=== PATIENT | female | born 1995 | race Caucasian/White ===

== ENCOUNTER 2020-05-15 13:23 | Observation (INO) | payer BC ==
[2020-05-15 14:00] LABS: Absolute Neutrophil Ct (ANC) 7.74 (1.4-6.9); BASOPHIL % 0.2 % (0.0-0.4); Basophil (Absolute #) 0.02 (0-0.4); Eosinophil % 1.3 % (0.00-5.0); Eosinophil (Absolute #) 0.13 (0-0.5); Hematocrit 36.6 % (35-47); Hemoglobin 11.9 gm/dl (12.0-16.0); Lymphocyte (Absolute #) 1.33 (1.0-4.6); Lymphocytes % 13.1 % (24.0-44.0); Mean Cell Volume 89.7 fl (78-100); Mean Corpuscular Hemoglobin 29.2 pg (26-32); Mean Corpuscular Hgb Concent. 32.5 g/dl (32-36); Mean Platelet Volume 9.5 fl (7.5-11.0); Monocyte (Absolute #) 0.94 (0.0-1.3); Monocytes % 9.3 % (0.0-12.0); Neutrophil % 76.1 % (36.0-66.0); Platelet Count 296 K/mm3 (150-450); Red Blood Count 4.08 M/mm3 (4.1-5.4); Red Cell Distribution Width 13.6 % (11.5-14.0); White Blood Count 10.2 K/mm3 (4.0-10.5)
[2020-05-15 14:06] LABS: ALBUMIN 3.7 g/dL (3.5-5.0); ALKALINE PHOSPHATASE 96 U/L (38-126); ANION GAP 10.3 MEQ/L (5-15); BLOOD UREA NITROGEN 8 mg/dL (7-17); CHLORIDE 107 mmol/L (98-107); Calcium 9.1 mg/dL (8.4-10.2); Carbon Dioxide 23 mmol/L (22-30); Creatinine 1 0.47 mg/dL (0.52-1.04); Glucose 107 mg/dL (74-106); Potassium 3.9 mmol/L (3.5-5.1); SGOT/AST 21 U/L (14-36); SGPT/ALT 17 U/L (0-35); SODIUM 137 mmol/L (137-145); Total Protein 6.9 g/dL (6.3-8.2)
--- NOTE | 2020-05-15 16:06 | XRAY ---
Indication: Hypertension. Evaluate cervical length. Limited transvaginal pelvic sonogram demonstrates closed cervix measuring 3.7 cm in length.
--- NOTE | 2020-05-15 16:06 | XRAY ---
Indication: Hypertension. Ultrasound biophysical profile study performed. Comparison: None There is a single viable intrauterine in cephalic presentation with heart rate 132 bpm. 4 quadrant LEOPOLDO is 10.8 cm. 2 points given for breathing, movements, tone, and qualitative amniotic fluid volume. Impression: Total biophysical profile score is 8 out of 8.
== END 2020-05-15 16:04 | disposition home or self-care (01) ==
LOC: OB 13:23
PROVIDERS: ADMIT Family Medicine; ATTEND Family Medicine
DX: Z34.03 Encounter for supervision of normal first pregnancy, third trimester (principal); R03.0 Elevated blood-pressure reading, without diagnosis of hypertension
CPT/HCPCS: 36415; 59025; 76817; 76819; 80053; 82570; 84156; 85025; G0378

== ENCOUNTER 2020-05-21 15:07 | Observation (INO) | payer BC ==
[2020-05-21 16:08] VITALS: BP 118/66; PULSE 78
--- NOTE | 2020-05-21 21:47 | XRAY ---
Indication: Hypertension. Biophysical profile exam. Ultrasound biophysical profile study was performed. Comparison: May 15, 2020. Again there is a single viable intrauterine in cephalic presentation with heart rate 137 bpm. 4 quadrant LEOPOLDO is 13.8 cm, previously 10.8 cm. Cervical length is 3.9 cm, previously 3.7 cm. Impression: Total biophysical profile score is again 8 out of 8. Cervical length 3.9 cm.
== END 2020-05-21 17:00 | disposition home or self-care (01) ==
LOC: OB 15:07 → EDSTATUS 05-22 10:25
PROVIDERS: ADMIT Family Medicine; ATTEND Family Medicine
DX: O14.93 Unspecified pre-eclampsia, third trimester (principal); Z3A.35 35 weeks gestation of pregnancy
CPT/HCPCS: 59025; 76819; G0378

== ENCOUNTER 2020-05-23 15:12 | Observation (INO) | payer BC ==
[2020-05-23 16:42] VITALS: BP 123/78; PULSE 76
--- NOTE | 2020-05-23 22:11 | XRAY ---
Exam: biophysical profile with nonstress from 05/23/2020. Comparison: Ultrasound biophysical profile from 05/21/2020. Indication: Preeclampsia. Findings: Assessment of breathing movements, gross body movements, tone, and qualitative amniotic fluid volume reveals a total score of 8 points out of a maximum of 8 points representing no change from 05/21/2020. heart rate measured 139 bpm. Amniotic fluid index measured 12.2 cm, previously 13.78 cm. Impression: 1. biophysical profile measures 8 points out of a maximum of 8 points representing no change from 05/21/2020. Exam: OB ultrasound follow-up per fetus from 05/23/2017. Comparison: OB ultrasound examination from 05/08/2020. Indication: Preeclampsia. Findings: A single live intrauterine fetus is seen in the cephalic lie. A normal amount of amniotic fluid is seen with an amniotic fluid index of 12.2 cm. Both body movement and respiration were seen by the technologist. The heart rate measured 139 bpm. The placenta is posterior. biometry: Biparietal diameter measures 9.13 cm consistent with a gestational age of 37 weeks, 0 days. Head circumference measures 34.06 cm consistent with a gestational age of 39 weeks, 1 day. Abdominal circumference measures 32.43 cm consistent with a gestational age of 36 weeks, 2 days. Femur length measures 6.41 cm consistent with a gestational age of 33 weeks, 1 day. Average composite gestational age based on all of the measurements is 36 weeks, 3 days representing satisfactory intrauterine growth as compared to 05/08/2020. Estimated due date by size criteria on today's exam is 06/17/2020. Established due date by the first OB ultrasound exam of 11/06/2019 is 06/26/2020. Estimated weight is 2794 g plus or -419.11 g (6 lbs. 3 oz.+ or -15 ounces) which places the fetus in the 69.2 percentile. A detailed anatomy scan was previously performed. Impression: 1. 36 week, 3 day single live intrauterine fetus in the cephalic lie. There has been satisfactory intrauterine growth since the previous ultrasound exam from 05/08/2020. 2. The placenta is posterior. 3. A normal amount of amniotic fluid is seen with an amniotic fluid index of 12.2 cm.
== END 2020-05-23 16:44 | disposition home or self-care (01) ==
LOC: OB 15:12
PROVIDERS: ADMIT Family Medicine; ATTEND Family Medicine
DX: O14.93 Unspecified pre-eclampsia, third trimester (principal); Z3A.35 35 weeks gestation of pregnancy
CPT/HCPCS: 59025; 76816; 76818; G0378

== ENCOUNTER 2020-05-26 19:01 | Observation (INO) | payer BC ==
[2020-05-26 19:46] LABS: Amphetamine,Urine NEGATIVE (NEGATIVE); Barbiturate,Urine NEGATIVE (NEGATIVE); Benzodiazepine,Urine NEGATIVE (NEGATIVE); Cocaine,Urine NEGATIVE (NEGATIVE); Methadone,Urine NEGATIVE (NEGATIVE); Opiate,Urine NEGATIVE (NEGATIVE); PCP,Urine NEGATIVE (NEGATIVE); THC,Urine NEGATIVE (NEGATIVE)
[2020-05-26 19:48] LABS: Appearance CLEAR (CLEAR); Bacteria RARE /HPF (NEGATIVE); Bilirubin NEGATIVE (NEGATIVE); Blood NEGATIVE Ery/ul (0-5); Epithelial Cells RARE /HPF (FEW); Glucose NEGATIVE (NEGATIVE); Ketones NEGATIVE (NEGATIVE); Leukocyte Esterase NEGATIVE (NEGATIVE); Mucus SLIGHT /HPF (NEGATIVE); Nitrite NEGATIVE (NEGATIVE); Protein,Urine Dip NEGATIVE (Negative); RBC 0-2 /HPF (0-2); Specific Gravity 1.017 (1.005-1.025); Urobilinogen NEGATIVE mg/dL (0-1)
[2020-05-26 20:50] LABS: Absolute Neutrophil Ct (ANC) 8.37 (1.4-6.9); BASOPHIL % 0.2 % (0.0-0.4); Basophil (Absolute #) 0.02 (0-0.4); Eosinophil % 1.1 % (0.00-5.0); Eosinophil (Absolute #) 0.14 (0-0.5); Hematocrit 37.8 % (35-47); Hemoglobin 12.6 gm/dl (12.0-16.0); Lymphocyte (Absolute #) 2.65 (1.0-4.6); Lymphocytes % 21.6 % (24.0-44.0); Mean Cell Volume 88.7 fl (78-100); Mean Corpuscular Hemoglobin 29.6 pg (26-32); Mean Corpuscular Hgb Concent. 33.3 g/dl (32-36); Mean Platelet Volume 9.6 fl (7.5-11.0); Neutrophil % 68.1 % (36.0-66.0); Platelet Count 282 K/mm3 (150-450); Red Blood Count 4.26 M/mm3 (4.1-5.4); Red Cell Distribution Width 13.8 % (11.5-14.0); White Blood Count 12.3 K/mm3 (4.0-10.5)
[2020-05-26 21:01] LABS: ALBUMIN 3.5 g/dL (3.5-5.0); ALKALINE PHOSPHATASE 103 U/L (38-126); ANION GAP 12.3 MEQ/L (5-15); BLOOD UREA NITROGEN 9 mg/dL (7-17); CHLORIDE 105 mmol/L (98-107); Calcium 9.2 mg/dL (8.4-10.2); Carbon Dioxide 23 mmol/L (22-30); Creatinine 1 0.52 mg/dL (0.52-1.04); Glucose 107 mg/dL (74-106); Potassium 3.6 mmol/L (3.5-5.1); SGOT/AST 21 U/L (14-36); SGPT/ALT 16 U/L (0-35); SODIUM 137 mmol/L (137-145); Total Protein 6.7 g/dL (6.3-8.2); Uric Acid 4.1 mg/dL (2.6-6.0)
[2020-05-26 21:33] VITALS: O2SAT 99
[2020-05-26 21:35] VITALS: BP 129/60; PULSE 84
== END 2020-05-26 21:30 | disposition home or self-care (01) ==
LOC: OB 19:01
PROVIDERS: ADMIT Obstetrics & Gynecology; ATTEND Obstetrics & Gynecology
DX: Z34.03 Encounter for supervision of normal first pregnancy, third trimester (principal)
CPT/HCPCS: 36415; 80053; 80307; 81001; 84550; 85025; G0378

== ENCOUNTER 2020-05-28 10:03 | Observation (INO) | payer BC ==
[~2020-05-28 10:03] MED LIST: AMMONIA AROMATIC IH ONE
--- NOTE | 2020-05-28 15:32 | XRAY ---
Indication: Preeclampsia. Ultrasound biophysical profile exam was performed. Comparison: May 23, 2020. Again there is a single viable intrauterine in cephalic presentation. heart rate is 131 BPM. Four-quadrant LEOPOLDO is 15.9 cm. 2 points given for breathing, movements, tone, and qualitative amniotic fluid volume. Impression: Biophysical profile score is again 8 out of 8.
[2020-05-28 16:02] VITALS: BP 117/67; PULSE 88
== END 2020-05-28 15:30 | disposition home or self-care (01) ==
LOC: OB 14:36
PROVIDERS: ADMIT Family Medicine; ATTEND Family Medicine
DX: O14.93 Unspecified pre-eclampsia, third trimester (principal); Z3A.35 35 weeks gestation of pregnancy
CPT/HCPCS: 59025; 76819; G0378

== ENCOUNTER 2020-05-31 14:59 | Observation (INO) | payer BC ==
[2020-05-31 16:08] VITALS: BP 141/85; PULSE 80
--- NOTE | 2020-05-31 16:59 | XRAY ---
Indication: Preeclampsia. Ultrasound biophysical profile exam performed. Comparison: May 15, , , and 2019. There is again a single viable intrauterine with heart rate 140 BPM. Four-quadrant LEOPOLDO is 15.4 cm. 2 points given for breathing, movements, tone, and qualitative amniotic fluid volume. Impression: Continued stable biophysical profile score 8 out of 8.
--- NOTE | 2020-05-31 16:59 | XRAY ---
Indication: Evaluate growth and cervical length. Two-dimensional OB ultrasound performed. Comparison: May 23, 2020. Again there is a single viable intrauterine in cephalic presentation. heart rate 140 BPM. Posterior placenta without abruption/previa. Cervical length is 4.3 cm. BPD measures 9.29 cm corresponding to 37 weeks 5 days. HC measures 34.57 cm corresponding to 40 weeks 0 days. AC measures 31.85 cm corresponding to 35 weeks 5 days. FL measures 6.95 cm corresponding to 35 weeks 5 days. LEOPOLDO is 15.4 cm. Impression: Again single viable intrauterine with mean gestational age 37 weeks 2 days. Normal progression of . No new/acute findings.
== END 2020-05-31 16:33 | disposition home or self-care (01) ==
LOC: OB 14:59
PROVIDERS: ADMIT Family Medicine; ATTEND Family Medicine
DX: O14.93 Unspecified pre-eclampsia, third trimester (principal); Z3A.36 36 weeks gestation of pregnancy
CPT/HCPCS: 59025; 76816; 76819; G0378

== ENCOUNTER 2020-06-06 12:22 | Observation (INO) | payer BC ==
[2020-06-06] MEDS ORDERED: Zofran 4 MG/2 ML VIAL IV PRN (20:11)
[2020-06-06] MEDS ORDERED: Nubain 10 MG/ML IV PRN (20:11)
[2020-06-06] MEDS ORDERED: TYLENOL EXTRA STRENGTH 500 MG PO PRN (20:11)
[2020-06-06] MEDS ORDERED: XYLOCAINE 1% HCL 20 ML MDV IJ PRN (20:11)
[2020-06-06] MEDS ORDERED: STADOL 2 MG IV PRN (20:11)
[2020-06-06] MEDS ORDERED: PITOCIN 30 UNITS/ LR 500 ML 30 UNITS/500 ML IV.SOLN. IV SCH (20:30)
[2020-06-06 20:50] LABS: BASOPHIL % 0.2 % (0.0-0.4); Basophil (Absolute #) 0.02 (0-0.4); Eosinophil % 1.2 % (0.00-5.0); Eosinophil (Absolute #) 0.13 (0-0.5); Hematocrit 36.1 % (35-47); Lymphocyte (Absolute #) 2.13 (1.0-4.6); Mean Cell Volume 88.9 fl (78-100); Mean Corpuscular Hemoglobin 29.6 pg (26-32); Mean Corpuscular Hgb Concent. 33.2 g/dl (32-36); Mean Platelet Volume 9.9 fl (7.5-11.0); Monocyte (Absolute #) 1.11 (0.0-1.3); Monocytes % 9.9 % (0.0-12.0); Neutrophil % 69.7 % (36.0-66.0); Platelet Count 303 K/mm3 (150-450); Red Blood Count 4.06 M/mm3 (4.1-5.4); Red Cell Distribution Width 13.7 % (11.5-14.0); White Blood Count 11.2 K/mm3 (4.0-10.5)
[2020-06-06 21:51] LABS: Amourphous Crystal FEW /HPF (NEGATIVE); Appearance CLOUDY (CLEAR); Bacteria FEW /HPF (NEGATIVE); Bilirubin NEGATIVE (NEGATIVE); Blood NEGATIVE Ery/ul (0-5); Glucose NEGATIVE (NEGATIVE); Ketones NEGATIVE (NEGATIVE); Leukocyte Esterase NEGATIVE (NEGATIVE); Mucus SLIGHT /HPF (NEGATIVE); Nitrite NEGATIVE (NEGATIVE); Protein,Urine Dip NEGATIVE (Negative); Specific Gravity 1.011 (1.005-1.025); Urobilinogen NEGATIVE mg/dL (0-1); WBC 0-2 /HPF (0-5)
[2020-06-06 22:01] LABS: Amphetamine,Urine NEGATIVE (NEGATIVE); Barbiturate,Urine NEGATIVE (NEGATIVE); Benzodiazepine,Urine NEGATIVE (NEGATIVE); Cocaine,Urine NEGATIVE (NEGATIVE); Methadone,Urine NEGATIVE (NEGATIVE); Opiate,Urine NEGATIVE (NEGATIVE); PCP,Urine NEGATIVE (NEGATIVE); THC,Urine NEGATIVE (NEGATIVE)
[2020-06-07] MEDS ORDERED: PITOCIN 30 UNITS/ LR 500 ML 30 UNITS/500 ML IV.SOLN. IV SCH (06:00)
[2020-06-07] MEDS ORDERED: Lactated Ringers 1,000 ML IV SCH (06:00)
[2020-06-07] MEDS ORDERED: PITOCIN 30 UNITS/ LR 500 ML 500 ML IV SCH (07:00)
[2020-06-07] MEDS ORDERED: SYNTHROID 75 MCG PO SCH (11:00)
[2020-06-07 13:29] VITALS: BP 130/70; PULSE 77; O2SAT 98
== END 2020-06-07 13:15 | disposition home or self-care (01) ==
LOC: OB 17:38
PROVIDERS: ADMIT Family Medicine; ATTEND Family Medicine
DX: Z34.03 Encounter for supervision of normal first pregnancy, third trimester (principal)
CPT/HCPCS: 80307; 81001; 85025; G0378; 36415; 87340; J2590; A9270-GY

== ENCOUNTER 2020-06-11 12:52 | Observation (INO) | payer BC ==
[2020-06-11 14:55] VITALS: BP 131/67; PULSE 86; O2SAT 97
--- NOTE | 2020-06-12 09:34 | XRAY ---
Exam: OB biophysical profile with nonstress from 06/11/2020. Comparison: OB biophysical profile without nonstress from 05/31/2020. Indication: Large for dates. Findings: Biophysical profile was 8 points out of a maximum of 8 points, scoring 2 points for each of the following parameters: breathing movements, gross body movements, tone, and qualitative amniotic fluid volume. A single live intrauterine fetus is seen in the cephalic lie. heart rate measured 133 bpm. Amniotic fluid index measured 15.29 cm, previously 15.4 cm. Impression: 1. OB biophysical profile scored 8 points out of a maximum of 8 points representing no significant change from 05/31/2020.
--- NOTE | 2020-06-12 09:57 | XRAY ---
Exam: OB ultrasound follow-up per fetus from 06/11/2020. Comparison: OB ultrasound follow-up for fetus from 06/04/2020. Indication: Large for dates. Findings: A single live intrauterine fetus is seen in the cephalic lie. heart rate measured 133 bpm. The placenta is posterior and grade 3. Amniotic fluid index measured 15.29 cm. Maternal cervical canal length is an average of 3.40 cm which is normal. It appears closed. biometry: Biparietal diameter measures 9.7 cm consistent with a gestational age of 39 weeks, 5 days. Abdominal circumference measures 35.68 cm consistent with a gestational age of 39 weeks, 4 days. Femur length measures 7.18 cm consistent with a gestational age of 36 weeks, 5 days. Average composite gestational age based on the above measurements is 38 weeks, 5 days. Established due date is 06/26/2020. Estimated weight is 3749 g plus or -562.42 g (8 lbs. 4 oz.+ or -1 lb. 4 oz.) placing the fetus in the 90.8 percentile. A detailed anatomy exam was not performed at this time. Impression: 1. 38 week, 5 day single live intrauterine fetus in the cephalic lie, as discussed above. 2. The placenta is posterior and grade 3. 3. Amniotic fluid index measured 15.29 cm which is normal. 4. Average maternal cervical canal measured 3.4 cm in length. It appears closed.
== END 2020-06-11 14:40 | disposition home or self-care (01) ==
LOC: MED SURG 12:52
PROVIDERS: ADMIT Family Medicine; ATTEND Family Medicine
DX: O13.3 Gestational [pregnancy-induced] hypertension without significant proteinuria, third trimester (principal); Z3A.38 38 weeks gestation of pregnancy
CPT/HCPCS: 76816; 76818

== ENCOUNTER 2020-06-17 10:32 | Observation (INO) | payer BC ==
--- NOTE | 2020-06-17 12:10 | XRAY ---
Indication: Decreased movement. well-being. Ultrasound biophysical profile exam performed. Comparison: Numerous priors, most recent May 31, 2020. Again there is a single viable intrauterine patency with heart rate 131 BPM. Four-quadrant LEOPOLDO is 8.9 cm. 2 points given for breathing, tone, and qualitative amniotic fluid volume. 0 points given for movement. Impression: Total biophysical profile score is now 6 out of 8.
[2020-06-17 12:26] VITALS: BP 135/85; PULSE 69
== END 2020-06-17 12:20 | disposition home or self-care (01) ==
LOC: OB 10:32
PROVIDERS: ADMIT Family Medicine; ATTEND Family Medicine
DX: Z34.03 Encounter for supervision of normal first pregnancy, third trimester (principal)
CPT/HCPCS: 59025; 76819; G0378

== ENCOUNTER 2020-06-17 12:37 | Observation (INO) | payer BC ==
[2020-06-18] MEDS ORDERED: PITOCIN 30 UNITS/ LR 500 ML 500 ML IV SCH (06:00)
[2020-06-18] MEDS ORDERED: TYLENOL EXTRA STRENGTH 500 MG PO PRN (19:25)
[2020-06-18] MEDS ORDERED: Zofran 4 MG/2 ML VIAL IV PRN (19:25)
[2020-06-18] MEDS ORDERED: Lactated Ringers 1,000 ML IV SCH (19:30)
[2020-06-18] MEDS ORDERED: XYLOCAINE 1% HCL 20 ML MDV IJ PRN (20:00)
[2020-06-18] MEDS: CYTOTEC PO SCH ×2 (20:52→22:54)
[2020-06-18 20:53] LABS: BASOPHIL % 0.2 % (0.0-0.4); Basophil (Absolute #) 0.02 (0-0.4); Eosinophil % 1.1 % (0.00-5.0); Eosinophil (Absolute #) 0.12 (0-0.5); Hematocrit 37.3 % (35-47); Hemoglobin 12.4 gm/dl (12.0-16.0); Lymphocyte (Absolute #) 2.08 (1.0-4.6); Lymphocytes % 19.4 % (24.0-44.0); Mean Cell Volume 88.8 fl (78-100); Mean Corpuscular Hemoglobin 29.5 pg (26-32); Mean Corpuscular Hgb Concent. 33.2 g/dl (32-36); Mean Platelet Volume 10.2 fl (7.5-11.0); Monocyte (Absolute #) 0.82 (0.0-1.3); Monocytes % 7.6 % (0.0-12.0); Neutrophil % 71.7 % (36.0-66.0); Platelet Count 308 K/mm3 (150-450); Red Cell Distribution Width 13.6 % (11.5-14.0); White Blood Count 10.7 K/mm3 (4.0-10.5)
[2020-06-18 21:24] LABS: Amphetamine,Urine NEGATIVE (NEGATIVE); Barbiturate,Urine NEGATIVE (NEGATIVE); Benzodiazepine,Urine NEGATIVE (NEGATIVE); Cocaine,Urine NEGATIVE (NEGATIVE); Methadone,Urine NEGATIVE (NEGATIVE); Opiate,Urine NEGATIVE (NEGATIVE); PCP,Urine NEGATIVE (NEGATIVE); THC,Urine NEGATIVE (NEGATIVE)
[2020-06-18 22:14] VITALS: O2SAT 96
[2020-06-19] MEDS: CYTOTEC PO SCH ×4 (00:55→06:55)
[2020-06-19] MEDS ORDERED: PITOCIN 30 UNITS/ LR 500 ML 500 ML IV SCH (08:00)
[2020-06-19] MEDS ORDERED: XYLOCAINE 1% HCL 20 ML MDV IJ PRN (08:00)
[2020-06-19] MEDS ORDERED: MEDICATION INTERVENTION MC SCH (08:45)
[2020-06-19] MEDS: Lactated Ringers 1,000 ML IV SCH ×2 (09:00→18:12)
[2020-06-19] MEDS ORDERED: PITOCIN 30 UNITS/ LR 500 ML 30 UNITS/500 ML IV.SOLN. IV SCH (11:00)
[2020-06-19] MEDS ORDERED: BRETHINE 1 MG/ML SQ PRN (11:00)
[2020-06-19] MEDS: SYNTHROID 75 MCG PO SCH (20:00)
[2020-06-19] MEDS: THERAGRAN MULTIVITAMIN PO SCH (20:00)
[2020-06-19] MEDS ORDERED: DOXYLAMINE SUCCINATE PO SCH (22:00)
[2020-06-19] MEDS ORDERED: Ambien 10 MG PO PRN (22:00)
[2020-06-19] MEDS ORDERED: VIT B6 PO SCH (22:00)
[2020-06-19] MEDS ORDERED: NON-FORMULARY ITEM (Prenatal Vits W-Ca,Fe,Fa(<1mg) [Prenatal] 1 EACH) PO SCH (22:00)
[2020-06-20] MEDS: Lactated Ringers 1,000 ML IV SCH (01:17)
[2020-06-20] MEDS: CYTOTEC PO SCH ×6 (07:31→17:31)
[2020-06-20] MEDS: THERAGRAN MULTIVITAMIN PO SCH (09:49)
[2020-06-20] MEDS: SYNTHROID 75 MCG PO SCH (09:49)
[2020-06-20 17:01] VITALS: BP 128/75; PULSE 80
[2020-06-20] MEDS ORDERED: PITOCIN 30 UNITS/ LR 500 ML 500 ML IV SCH (20:00)
== END 2020-06-20 19:25 | disposition home or self-care (01) ==
LOC: OB 06-18 20:02
PROVIDERS: ADMIT Family Medicine; ATTEND Family Medicine
DX: Z34.03 Encounter for supervision of normal first pregnancy, third trimester (principal)
CPT/HCPCS: 36415; 80307; 85025; 87340; G0378; J2590; A9270-GY

== ENCOUNTER 2020-06-22 08:55 | Inpatient (IN) | payer BC ==
[2020-06-22] MEDS ORDERED: XYLOCAINE 1% HCL 20 ML MDV IJ PRN (20:17)
[2020-06-22] MEDS ORDERED: Zofran 4 MG/2 ML VIAL IV PRN (20:17)
[2020-06-22] MEDS ORDERED: CYTOTEC PO SCH (20:30)
[2020-06-22 21:03] LABS: Hematocrit 35.5 % (35-47); Hemoglobin 11.7 gm/dl (12.0-16.0); Mean Cell Volume 89.6 fl (78-100); Mean Corpuscular Hemoglobin 29.5 pg (26-32); Mean Platelet Volume 10.1 fl (7.5-11.0); Platelet Count 278 K/mm3 (150-450); Red Blood Count 3.96 M/mm3 (4.1-5.4); Red Cell Distribution Width 13.7 % (11.5-14.0); White Blood Count 11.9 K/mm3 (4.0-10.5)
[2020-06-22] MEDS: CYTOTEC PO SCH ×2 (21:03→23:00)
[2020-06-22 21:21] LABS: Amphetamine,Urine NEGATIVE (NEGATIVE); Barbiturate,Urine NEGATIVE (NEGATIVE); Benzodiazepine,Urine NEGATIVE (NEGATIVE); Cocaine,Urine NEGATIVE (NEGATIVE); Methadone,Urine NEGATIVE (NEGATIVE); Opiate,Urine NEGATIVE (NEGATIVE); PCP,Urine NEGATIVE (NEGATIVE); THC,Urine NEGATIVE (NEGATIVE)
[2020-06-22 22:43] LABS: Basophil 1 % (0.0-1.0); Lymphocytes 16 % (24-44); Monocyte 4 % (0.0-12.0); Neutrophils 79 % (36.0-66.0); Total Cells Counted 100
[2020-06-22 22:44] LABS: Platelet Estimate NORMAL (NORMAL)
[2020-06-22] MEDS ORDERED: Ephedrine Sulfate 50 MG/ML IV PRN (22:44)
[2020-06-23] MEDS: CYTOTEC PO SCH ×3 (01:00→05:30)
[2020-06-23] MEDS ORDERED: PITOCIN 30 UNITS/ LR 500 ML 30 UNITS/500 ML IV.SOLN. IV SCH (08:00)
[2020-06-23] MEDS ORDERED: Lactated Ringers 1,000 ML IV ONE (08:00)
[2020-06-23] MEDS: PITOCIN 30 UNITS/ LR 500 ML 30 UNITS/500 ML IV.SOLN. IV SCH (08:47)
[2020-06-23] MEDS: Lactated Ringers 1,000 ML IV SCH ×2 (08:48→17:58)
[2020-06-23] MEDS: OB EPIDURAL NAROPIN/SUFENTANIL IN NACL EPIDURAL PRN (18:10)
[2020-06-23] MEDS ORDERED: BENADRYL 50 MG/ML IV PRN (20:33)
[2020-06-24] MEDS: Lactated Ringers 1,000 ML IV SCH ×2 (00:57→08:34)
[2020-06-24] MEDS: OB EPIDURAL NAROPIN/SUFENTANIL IN NACL EPIDURAL PRN (03:26)
[2020-06-24] MEDS: PITOCIN 30 UNITS/ LR 500 ML 30 UNITS/500 ML IV.SOLN. IV SCH (04:28)
[2020-06-24] MEDS ORDERED: MEDICATION INTERVENTION MC SCH (07:30)
[2020-06-24] MEDS ORDERED: Reglan 10 MG/2 ML IV SCH (08:15)
[2020-06-24] MEDS ORDERED: SOD CITRATE-CITRIC ACID SOLN PO ONE (08:15)
[2020-06-24] MEDS ORDERED: Pepcid 20 MG VIAL IV SCH (08:15)
[2020-06-24] MEDS ORDERED: Astramorph-Pf 5 MG/10 ML ONE (08:25)
[2020-06-24] MEDS ORDERED: XYLOCAINE 2%/Epi 1:200000 20ML VIAL MPF ONE (08:25)
[2020-06-24] MEDS ORDERED: CEFAZOLIN 2 GM-D5W BAG** 2 GM/50 ML ML IV SCH (08:30)
[2020-06-24] MEDS ORDERED: SUBLIMAZE 100 MCG/2 ML ONE (08:34)
[2020-06-24 09:20] LABS: ABO TYPING O; Antibody Screen NEGATIVE (NEGATIVE); RH TYPING POSITIVE
[2020-06-24 09:25] LABS: INR 1.01 (0.8-3.0); PROTIME 11.4 SECONDS (9.95-12.35)
[2020-06-24 09:28] LABS: PTT 26.4 SECONDS (25.3-37.0)
[2020-06-24] MEDS ORDERED: Nubain 10 MG/ML IV PRN (09:30)
[2020-06-24] MEDS ORDERED: Narcan 0.4 MG/ML IV PRN (09:30)
[2020-06-24] MEDS ORDERED: HOLD NARCOTIC ANALGESICS AND SEDATIVES X24 HR MC PRN (09:30)
[2020-06-24] MEDS ORDERED: Sodium Chloride 0.9% 10 ML FLUSH Syringe IJ PRN (09:30)
[2020-06-24] MEDS ORDERED: CLARITIN 10 MG PO PRN (09:30)
[2020-06-24] MEDS ORDERED: Decadron 4 MG INJ ONE (09:45)
[2020-06-24] MEDS ORDERED: MARCAINE 0.5%-EPI 1:200,000 VL IJ ONE (09:45)
[2020-06-24] MEDS ORDERED: Zofran 4 MG/2 ML VIAL ONE (09:45)
[2020-06-24] MEDS ORDERED: Pitocin 10 UNITS/ML ONE (09:45)
[2020-06-24] MEDS ORDERED: Lactated Ringers 1,000 ML IV ONE (09:53)
[2020-06-24] MEDS ORDERED: SYNTHROID 75 MCG PO SCH (10:00)
[2020-06-24] MEDS ORDERED: THERAGRAN MULTIVITAMIN PO SCH (10:00)
[2020-06-24] MEDS ORDERED: Adacel Vial IM ONE (10:28)
[2020-06-24] MEDS ORDERED: TYLENOL EXTRA STRENGTH 500 MG PO PRN (10:28)
[2020-06-24] MEDS ORDERED: Ambien 10 MG PO PRN (10:28)
[2020-06-24] MEDS ORDERED: Anucort-HC SUPPOSITORY PR PRN (10:28)
[2020-06-24] MEDS ORDERED: CORTISONE 1% CREAM TP PRN (10:28)
[2020-06-24] MEDS ORDERED: Mylicon 80MG PO PRN (10:28)
[2020-06-24] MEDS ORDERED: Dulcolax 10 MG SUPP PR PRN (10:28)
[2020-06-24] MEDS ORDERED: LANSINOH 40 GM TOP PRN (10:28)
[2020-06-24] MEDS ORDERED: Dextrose 5%-Lr IV Solution 1000 ML 1,000 ML IV SCH (14:30)
[2020-06-24] MEDS ORDERED: DOXYLAMINE SUCCINATE PO SCH (22:00)
[2020-06-24] MEDS ORDERED: NON-FORMULARY ITEM (Prenatal Vits W-Ca,Fe,Fa(<1mg) [Prenatal] 1 EACH) PO SCH (22:00)
[2020-06-24] MEDS ORDERED: VIT B6 PO SCH (22:00)
[2020-06-24] MEDS: MOTRIN 400 MG PO PRN (22:13)
[2020-06-24] MEDS: Colace 100 MG PO SCH (22:14)
[2020-06-25] MEDS: MOTRIN 400 MG PO PRN ×2 (04:04→16:37)
[2020-06-25] MEDS: TYLENOL EXTRA STRENGTH 500 MG PO PRN ×2 (04:05→08:36)
[2020-06-25 05:26] LABS: Absolute Neutrophil Ct (ANC) 12.69 (1.4-6.9); BASOPHIL % 0.1 % (0.0-0.4); Basophil (Absolute #) 0.02 (0-0.4); Eosinophil % 0.2 % (0.00-5.0); Eosinophil (Absolute #) 0.04 (0-0.5); Hematocrit 33.8 % (35-47); Lymphocyte (Absolute #) 2.11 (1.0-4.6); Lymphocytes % 13.1 % (24.0-44.0); Mean Cell Volume 90.6 fl (78-100); Mean Corpuscular Hemoglobin 29.5 pg (26-32); Mean Corpuscular Hgb Concent. 32.5 g/dl (32-36); Mean Platelet Volume 10.3 fl (7.5-11.0); Monocyte (Absolute #) 1.21 (0.0-1.3); Monocytes % 7.5 % (0.0-12.0); Neutrophil % 79.1 % (36.0-66.0); Platelet Count 264 K/mm3 (150-450); Red Blood Count 3.73 M/mm3 (4.1-5.4); Red Cell Distribution Width 13.9 % (11.5-14.0); White Blood Count 16.1 K/mm3 (4.0-10.5)
--- NOTE | 2020-06-25 07:59 | OP ---
SURGERY DATE/TIME: 06/24/2020 0909 PREOPERATIVE DIAGNOSES: 1) Failure to progress in labor. 2) Prolonged rupture of membranes. POSTOPERATIVE DIAGNOSES: 1) Failure to progress in labor. 2) Prolonged rupture of membranes. PROCEDURE: Primary low transverse section. SURGEON: Yahir Freitas M.D. ANESTHESIA: Epidural by Tra Ford CRNA. ESTIMATED BLOOD LOSS: 300 ml. IV FLUIDS: 1300 ml of crystalloid. URINE OUTPUT: 200 cc clear straw-colored urine. SPECIMEN: None. DESCRIPTION OF PROCEDURE: After informed, written consent was obtained, the patient was taken to the operating room. She had a previously placed laboring epidural dosed for anesthesia and was prepped and draped in the usual sterile fashion. After adequate level of anesthesia was assessed, a low transverse skin incision was made by knife and carried down through the subcutaneous fat to the level of the fascia. The fascia was nicked on both sides of the midline and extended horizontal using curved Krishnamurthy scissors. The superior free edge of the fascia was grasped with Soumya clamps and the underlying rectus muscles were dissected free. The same was repeated inferiorly. The peritoneal cavity was opened and extended horizontal bluntly. Bladder flap was then created and reflected over the lower uterine segment. Horizontal uterine incision was made by knife and carried down to the level of the amniotic membranes which were carefully artificially ruptured revealing clear fluid. A viable male was delivered from the vertex presentation. Oropharynx and nares were bulb suctioned free. He had a strong cry on the field. Cord was clamped and cut. He was handed off to the awaiting nursery team. The placenta was then manually extracted and the uterus was exteriorized. The uterine cavity was wiped free of any remaining membranes, blood and clot with lap sponge. The uterine incision was closed with #1 chromic in a running locked fashion with good closure and good hemostasis. The posterior cul-de-sac was wiped free of blood and clot with moist lap sponge and then the uterus was returned to the peritoneal cavity. The lateral gutters were wiped free of blood and clot. There was a small area of oozing in the mid portion of the incision. The uterus was closed with additional #1 chromic with good hemostasis achieved following placement of additional suture. The fascia was closed with 0 Vicryl in a running fashion. Good closure and good hemostasis were achieved. The subcutaneous fat was irrigated with warm, sterile saline and any areas of bleeding were cauterized with electrocautery. Finally, the skin layer was closed with 4-0 undyed Vicryl in a running subcuticular fashion. Steri-Strips and occlusive dressing were placed over the incision and the patient was transferred to the recovery room in good condition.
[2020-06-25] MEDS ORDERED: PERCOCET TABLET 5/325MG PO PRN (09:30)
[2020-06-25] MEDS ORDERED: FERREX 150 PO SCH (10:00)
[2020-06-25] MEDS: Colace 100 MG PO SCH ×2 (14:03→21:55)
[2020-06-25] MEDS: NORCO 5/325 MG PO PRN ×2 (18:21→21:56)
[2020-06-25 20:34] LABS: BASOPHIL % 0.2 % (0.0-0.4); Basophil (Absolute #) 0.02 (0-0.4); Eosinophil % 0.7 % (0.00-5.0); Eosinophil (Absolute #) 0.09 (0-0.5); Hematocrit 35.6 % (35-47); Hemoglobin 11.6 gm/dl (12.0-16.0); Lymphocyte (Absolute #) 2.11 (1.0-4.6); Lymphocytes % 15.9 % (24.0-44.0); Mean Cell Volume 91.8 fl (78-100); Mean Corpuscular Hemoglobin 29.9 pg (26-32); Mean Corpuscular Hgb Concent. 32.6 g/dl (32-36); Mean Platelet Volume 9.7 fl (7.5-11.0); Monocyte (Absolute #) 1.02 (0.0-1.3); Monocytes % 7.7 % (0.0-12.0); Neutrophil % 75.5 % (36.0-66.0); Platelet Count 295 K/mm3 (150-450); Red Blood Count 3.88 M/mm3 (4.1-5.4); White Blood Count 13.2 K/mm3 (4.0-10.5)
[2020-06-26] MEDS: MOTRIN 400 MG PO PRN ×2 (00:11→06:06)
[2020-06-26] MEDS: NORCO 5/325 MG PO PRN ×2 (02:02→06:05)
[2020-06-26 02:07] VITALS: PULSE 87; O2SAT 96
--- NOTE | 2020-06-26 07:43 | PCM.DS ---
Discharge Summary Date of Admission: 06/23/20 08:55 Admitting Physician: MELISSA CISNEROS MD Consults: Consults on Case 06/22/20 22:45 Notify Anesthesia Provider PRN 06/24/20 08:15 Notify Anesthesia Provider ROUTINE 06/24/20 09:30 Notify Anesthesia Provider PRN Primary Care Provider: NIC BEATTY Allergies Allergies No Known Drug Allergies Allergy (Verified 06/22/20 21:55) Hospital Summary - Hospital Course Hospital Course: patient had primary section on 06/24, failure to progress in labor and prolonged rupture of membranes approx 24 hours at 39 weeks. she has been afebrile, pain is well controlled, mild lochia and taking normal diet and tolerating activity well. no complications post-operatively. labs were unremarkable - Vitals & Intake/Output Vital Signs: Vital Signs Temperature 98.3 F 06/26/20 02:00 Pulse Rate 87 06/26/20 02:00 Respiratory Rate 20 06/26/20 02:00 Blood Pressure 120/73 06/26/20 02:00 O2 Sat by Pulse Oximetry 96 06/26/20 02:00 Intake & Output: Intake & Output 06/23/20 06/24/20 06/25/20 06/26/20 11:59 11:59 11:59 11:59 Intake Total 400 9000 1594 1594 Output Total 2500 3000 Balance 400 6500 -1406 1594 Weight 230 kg 104.326 kg - Lab Result Diagrams: 06/25/20 20:20 Lab Results-Last 24 Hrs: Lab Results-Last 24 Hours 06/25/20 Range/Units 20:20 WBC 13.2 H (4.0-10.5) K/mm3 RBC 3.88 L (4.1-5.4) M/mm3 Hgb 11.6 L (12.0-16.0) gm/dl Hct 35.6 (35-47) % MCV 91.8 (78-100) fl MCH 29.9 (26-32) pg MCHC 32.6 (32-36) g/dl RDW 14.0 (11.5-14.0) % Plt Count 295 (150-450) K/mm3 MPV 9.7 (7.5-11.0) fl Gran % 75.5 H (36.0-66.0) % Eos # (Auto) 0.09 (0-0.5) Absolute Lymphs (auto) 2.11 (1.0-4.6) Absolute Monos (auto) 1.02 (0.0-1.3) Lymphocytes % 15.9 L (24.0-44.0) % Monocytes % 7.7 (0.0-12.0) % Eosinophils % 0.7 (0.00-5.0) % Basophils % 0.2 (0.0-0.4) % Absolute Granulocytes 10.00 H (1.4-6.9) Basophils # 0.02 (0-0.4) Micro Results-Entire Visit: Microbiology 06/23/20 20:40 Urine Culture - Final Catherized NO GROWTH - Procedures and Test Procedures and Tests throughout Hospitalization: Therapy Orders & Screens 06/24/20 09:52 Standby ROUTINE Comment: Discharge Exam General Appearance: no apparent distress, alert Respiratory Exam: normal breath sounds, lungs clear, No respiratory distress Cardiovascular Exam: regular rate/rhythm, normal heart sounds Gastrointestinal/Abdomen Exam: soft, other (incision clean,dry and intact with s alisha strips intact), No tenderness, No mass Extremity Exam: normal inspection, normal range of motion Final Diagnosis/Problem List - Final Discharge Diagnosis/Problem (1) delivery delivered Current Visit: Yes Status: Acute Code(s): O82 - ENCOUNTER FOR DELIVERY WITHOUT INDICATION - Discharge Disposition: Home, Self-Care Condition: Stable Prescriptions: New Hydrocodone/APAP 5-325 Tab^^^ [Scribner 5-325 Tablet^^^] 1 tab PO Q6HPRN PRN #28 tablet MDD 6 PRN Reason: Pain Continue Levothyroxine Sodium 75 Mcg [Synthroid 75 Mcg] 75 mcg PO DAILY Vits W-Ca,Fe,FA(<1Mg) [] 1 each PO HS Discontinued Doxylamine Succinate/Vit B6 [Eryn Garcia 10-10 mg Tablet] 1 each PO HS Follow up with: ROSSANA SANCHEZ MD [ACTIVE STAFF] - 1 Week
[2020-06-26 13:10] VITALS: BP 131/87
== END 2020-06-26 10:00 | disposition home or self-care (01) | DRG 788 ==
LOC: OB 08:55 → OBSVTOIN 06-23 08:55
PROVIDERS: ADMIT Family Medicine; ATTEND Family Medicine
PROC: 10D00Z1 Extraction of Products of Conception, Low, Open Approach (ICD-10-PCS; principal; 2020-06-24)
DX: O61.0 Failed medical induction of labor (principal); Z3A.39 39 weeks gestation of pregnancy; Z37.0 Single live birth
CPT/HCPCS: 36415; 64488; 76937; 76942; 80307; 85025; 85610; 85730; 86850; 86900; 86901; 87086; 90472; 90715; 94799; G0378; J0690; J1100; J2274; J2405; J2590; J2795; J3010; L0625; A9270-GY

== ENCOUNTER 2023-03-23 10:59 | Emergency (ER) | payer BC ==
[2023-03-23] MEDS ORDERED: BABY ASPIRIN 81 MG CHEW PO ONE (11:01)
--- NOTE | 2023-03-23 11:02 | ERPHSYRPT ---
- History of Present Illness Time Seen by Provider: 03/23/23 11:01 Historian: patient Exam Limitations: no limitations Physician History: This is a 28-year-old white female patient is very active and is a patient of nurse practitioner Liz who was running and exercising just prior to arrival to the emergency department. She began having chest pain with associated heart rate of approximately 175 bpm. She is never experienced chest pain while exercising or running. She rested and her heart rate dropped to a normal range but the chest pain persisted. Patient does have a history of thyroid nodules x2 and has an ultrasound of her thyroid planned for tomorrow. She also is on levothyroxine and phentermine. She has been on these medications for a while. They are not new medications for her. The chest pain is described as a pressure on the left side anterior chest. It does not radiate. The patient arrives to the emergency department and the chest pain is mild and is now described as a tightness. Patient has no bleeding or clotting disorders. Timing/Duration: today Activities at Onset: activity (Running) Quality: pressure Location: other (Left anterior chest) Chest Pain Radiation: no radiation Severity of Pain-Max: mild Severity of Pain-Current: mild Modifying Factors: Improves With: nothing Associated Symptoms: denies symptoms Prior Chest Pain/Cardiac Workup: no prior chest pain, no prior cardiac workup Nitro Today/Relief: no nitro taken today Aspirin Treatment Today: no aspirin today Allergies/Adverse Reactions: No Known Drug Allergies Allergy (Verified 03/23/23 11:00) Home Medications: Levothyroxine Sodium 75 Mcg [Synthroid 75 Mcg] 75 mcg PO DAILY 04/25/20 [History] Phentermine HCl 37.5 mg PO DAILY 03/23/23 [History] Travel Risk - International Travel Have you traveled outside of the country in past 3 weeks: No - Coronavirus Screening Are you exhibiting any of the following symptoms?: No Close contact with a COVID-19 positive Pt in past 14-21 Days: No - Review of Systems Constitutional: No Symptoms Eyes: No Symptoms Ears, Nose, & Throat: No Symptoms Respiratory: No Symptoms Cardiac: Chest Pain (Left anterior chest) Abdominal/Gastrointestinal: No Symptoms Genitourinary Symptoms: No Symptoms Musculoskeletal: No Symptoms Skin: No Symptoms Neurological: No Symptoms Psychological: No Symptoms Endocrine: No Symptoms Hematologic/Lymphatic: No Symptoms Immunological/Allergic: No Symptoms All Other Systems: Reviewed and Negative - Past Medical History Neurological History: No Pertinent History ENT History: No Pertinent History Cardiac History: No Pertinent History Respiratory History: No Pertinent History Endocrine Medical History: Hypothyroidism Musculoskeletal History: Other GI Medical History: No Pertinent History History: No Pertinent History Psycho-Social History: No Pertinent History Female Reproductive Disorders: No Pertinent History Other Medical History: RIGHT KNEE ARTHROSCOPY IN HIGH SCHOOL - Past Surgical History Past Surgical History: Yes Neuro Surgical History: No Pertinent History Cardiac: No Pertinent History Respiratory: No Pertinent History Gastrointestinal: No Pertinent History Genitourinary: No Pertinent History Musculoskeletal: Orthopedic Surgery Female Surgical History: No Pertinent History Other Surgical History: right knee scope - Social History Smoking Status: Never smoker Exposure to second hand smoke: No Drug Use: none - Nursing Vital Signs Nursing Vital Signs: Initial Vital Signs Pulse Rate 84 03/23/23 11:02 Respiratory Rate 14 03/23/23 11:02 Blood Pressure 128/90 03/23/23 11:02 O2 Sat by Pulse Oximetry 98 03/23/23 11:02 Pain Scale Pain Intensity 3 - Physical Exam General Appearance: no apparent distress, alert, anxiety Eye Exam: PERRL/EOMI, eyes nml inspection Ears, Nose, Throat Exam: normal ENT inspection, moist mucous membranes Neck Exam: normal inspection, non-tender, supple, full range of motion Respiratory Exam: normal breath sounds, chest tenderness, lungs clear, airway intact, No respiratory distress Cardiovascular Exam: regular rate/rhythm, normal heart sounds, normal peripheral pulses Gastrointestinal/Abdomen Exam: soft, normal bowel sounds, No tenderness Pelvic Exam: not done Rectal Exam: not done Back Exam: normal inspection, normal range of motion, No CVA tenderness, No vertebral tenderness Extremity Exam: normal inspection, normal range of motion, pelvis stable Neurologic Exam: alert, oriented x 3, cooperative, commercial counsel II-XII nml as tested, normal mood/affect, nml cerebellar function, nml station & gait, sensation nml Skin Exam: normal color, warm, No dry Lymphatic Exam: No adenopathy SpO2 Interpretation: normal O2 Delivery: Room Air - Course Nursing assessment & vital signs reviewed: Yes EKG Interpreted by Me: RATE (76), Sinus Rhythm, NORMAL AXIS, NORMAL INTERVALS, NORMAL QRS, NORMAL ST-T, Other (No acute ischemic changes on today's twelve-lead EKG.) Ordered Tests: Active Orders 24 hr Category Date Time Status Field Irrigation Worker STAT Care 03/23/23 11:02 Active EKG-ER Only STAT Care 03/23/23 11:01 Active IV Insertion STAT Care 03/23/23 11:01 Active Pulse Oximetry (ED) STAT Care 03/23/23 11:01 Active CHEST 1 VIEW (PORTABLE) Stat Exams 03/23/23 11:01 Completed CBC W DIFF Stat Lab 03/23/23 11:10 Completed CMP Stat Lab 03/23/23 11:10 Completed D-DIMER QUANTITATIVE Stat Lab 03/23/23 11:10 Completed T4 (Thyroxine) Stat Lab 03/23/23 11:20 Completed TROPONIN Q4H Lab 03/23/23 11:10 Completed TROPONIN Q4H Lab 03/23/23 15:15 Ordered TROPONIN Q4H Lab 03/23/23 19:15 Ordered TSH [TSH, 3RD Generation] Stat Lab 03/23/23 11:20 Completed Medication Summary Discontinued Medications Generic Name Dose Route Start Last Admin Trade Name Freq PRN Reason Stop Dose Admin Aspirin 324 mg 03/23/23 11:01 03/23/23 11:15 Aspirin 81 Mg Tab.Chew PO 03/23/23 11:02 324 mg STAT ONE Administration Aspirin Confirm 03/23/23 11:15 Aspirin 81 Mg Tab.Chew Administered 03/23/23 11:16 Dose 324 mg .ROUTE .STK-MED ONE Lab/Rad Data: Laboratory Result Diagrams 03/23/23 11:10 03/23/23 11:10 Laboratory Results 03/23/23 03/23/23 03/23/23 Range/Units 11:20 11:20 11:10 WBC (4.0-10.5) x10^3/uL RBC (4.1-5.4) x10^6/uL Hgb (12.0-16.0) g/dL Hct (35-47) % MCV (78-100) fL MCH (26-32) pg MCHC (32-36) g/dL RDW (11.5-14.0) % Plt Count (150-450) x10^3/uL MPV (7.5-11.0) fL Gran % (36.0-66.0) % Immature Gran % (Auto) (0.00-0.4) % Nucleat RBC Rel Count (0.00-0.1) % Eos # (Auto) (0-0.5) x10^3/uL Immature Gran # (Auto) (0.00-0.03) x10^3u/L Absolute Lymphs (auto) (1.0-4.6) x10^3/uL Absolute Monos (auto) (0.0-1.3) x10^3/uL Absolute Nucleated RBC (0.00-0.01) x10^3u/L Lymphocytes % (24.0-44.0) % Monocytes % (0.0-12.0) % Eosinophils % (0.00-5.0) % Basophils % (0.0-0.4) % Absolute Granulocytes (1.4-6.9) x10^3/uL Basophils # (0-0.4) x10^3/uL D-Dimer (0.0-0.50) mg/L Sodium (137-145) mmol/L Potassium (3.5-5.1) mmol/L Chloride (98-107) mmol/L Carbon Dioxide (22-30) mmol/L Anion Gap (5-15) MEQ/L BUN (7-17) mg/dL Creatinine (0.52-1.04) mg/dL Estimated GFR ML/MIN Glucose (74-106) mg/dL Calcium (8.4-10.2) mg/dL Total Bilirubin (0.2-1.3) mg/dL AST (14-36) U/L ALT (0-35) U/L Alkaline Phosphatase (38-126) U/L Troponin I < 0.012 (0.000-0.034) ng/mL Serum Total Protein (6.3-8.2) g/dL Albumin (3.5-5.0) g/dL Thyroxine (T4) 6.90 (5.53-10.96) ug/dL TSH 3rd Generation 2.240 (0.47-4.68) mIU/L 03/23/23 03/23/23 03/23/23 Range/Units 11:10 11:10 11:10 WBC 7.4 (4.0-10.5) x10^3/uL RBC 4.89 (4.1-5.4) x10^6/uL Hgb 13.9 (12.0-16.0) g/dL Hct 41.5 (35-47) % MCV 84.9 (78-100) fL MCH 28.4 (26-32) pg MCHC 33.5 (32-36) g/dL RDW 11.9 (11.5-14.0) % Plt Count 394 (150-450) x10^3/uL MPV 8.8 (7.5-11.0) fL Gran % 62.4 (36.0-66.0) % Immature Gran % (Auto) 0.3 (0.00-0.4) % Nucleat RBC Rel Count 0.0 (0.00-0.1) % Eos # (Auto) 0.14 (0-0.5) x10^3/uL Immature Gran # (Auto) 0.02 (0.00-0.03) x10^3u/L Absolute Lymphs (auto) 2.07 (1.0-4.6) x10^3/uL Absolute Monos (auto) 0.48 (0.0-1.3) x10^3/uL Absolute Nucleated RBC 0.00 (0.00-0.01) x10^3u/L Lymphocytes % 27.8 (24.0-44.0) % Monocytes % 6.5 (0.0-12.0) % Eosinophils % 1.9 (0.00-5.0) % Basophils % 1.1 (0.0-0.4) % Absolute Granulocytes 4.65 (1.4-6.9) x10^3/uL Basophils # 0.08 (0-0.4) x10^3/uL D-Dimer < 0.19 (0.0-0.50) mg/L Sodium 140 (137-145) mmol/L Potassium 4.0 (3.5-5.1) mmol/L Chloride 102 (98-107) mmol/L Carbon Dioxide 25 (22-30) mmol/L Anion Gap 17.1 H (5-15) MEQ/L BUN 11 (7-17) mg/dL Creatinine 0.72 (0.52-1.04) mg/dL Estimated GFR > 60.0 ML/MIN Glucose 100 (74-106) mg/dL Calcium 9.1 (8.4-10.2) mg/dL Total Bilirubin 0.60 (0.2-1.3) mg/dL AST 39 H (14-36) U/L ALT 30 (0-35) U/L Alkaline Phosphatase 67 (38-126) U/L Troponin I (0.000-0.034) ng/mL Serum Total Protein 8.4 H (6.3-8.2) g/dL Albumin 4.7 (3.5-5.0) g/dL Thyroxine (T4) (5.53-10.96) ug/dL TSH 3rd Generation (0.47-4.68) mIU/L - Progress Progress: improved, re-examined Air Movement: good Progress Note: 03/23/23 12:09 Chest x-ray was interpreted by the radiologist. I reviewed the impression. Bennett dietrich does not have any acute cardiopulmonary process. This patient has a medical issue is of moderate complexity. The level of complexity and the work-up performed is based on the review of the patient's past medical history, review of the patient's medication list, review of the patient's drug allergies, history present illness and findings on physical examination. The work-up includes CBC, CMP, D-dimer, troponin, twelve-lead EKG, chest x-ray, T4 and TSH levels. I reviewed the results of the work-up except for the T4 and TSH which are pending. Patient does not have any acute, emergent findings for her chest pain. If the T4 and TSH levels are within reasonable range, we will discharge this patient to home. She is instructed to follow-up with her primary care provider today to make arrangements for reevaluation in the next 3 days. She is to discuss with her primary care provider for further cardiac work-up and possible referral to a concierge receptionist if indicated. Blood Culture(s) Obtained: No Antibiotics given: No Counseled pt/family regarding: lab results, diagnosis, need for follow-up, rad results Medical Desision Making - Diagnostic Testing Diagnostic test were ordered, analyzed, and reviewed by me: Yes Radiological Interpretation: Reviewed by me, Teleradiologist Report - Risk of complications Minimal Risk: Minimal risk of morbidity - Departure Departure Disposition: Home Clinical Impression: Chest pain Condition: Stable Critical Care Time: No Referrals: NIC BEATTY NP [Primary Care Provider] - Follow up/PCP as directed Additional Instructions: Take your medication as prescribed. Your primary care provider today to make arranges for follow-up appointment within the next 3 days for further evaluation and management including referral to a concierge receptionist if indicated.
[2023-03-23 11:12] LABS: Absolute Neutrophil Ct (ANC) 4.65 x10^3/uL (1.4-6.9); BASOPHIL % 1.1 % (0.0-0.4); Basophil (Absolute #) 0.08 x10^3/uL (0-0.4); Eosinophil % 1.9 % (0.00-5.0); Eosinophil (Absolute #) 0.14 x10^3/uL (0-0.5); Hematocrit 41.5 % (35-47); Hemoglobin 13.9 g/dL (12.0-16.0); IMMATURE GRAN # 0.02 x10^3u/L (0.00-0.03); IMMATURE GRAN % 0.3 % (0.00-0.4); Lymphocyte (Absolute #) 2.07 x10^3/uL (1.0-4.6); Lymphocytes % 27.8 % (24.0-44.0); Mean Cell Volume 84.9 fL (78-100); Mean Corpuscular Hemoglobin 28.4 pg (26-32); Mean Corpuscular Hgb Concent. 33.5 g/dL (32-36); Mean Platelet Volume 8.8 fL (7.5-11.0); Monocyte (Absolute #) 0.48 x10^3/uL (0.0-1.3); Monocytes % 6.5 % (0.0-12.0); Neutrophil % 62.4 % (36.0-66.0); Platelet Count 394 x10^3/uL (150-450); Red Blood Count 4.89 x10^6/uL (4.1-5.4); Red Cell Distribution Width 11.9 % (11.5-14.0); White Blood Count 7.4 x10^3/uL (4.0-10.5)
[2023-03-23] MEDS ORDERED: BABY ASPIRIN 81 MG CHEW ONE (11:15)
[2023-03-23 11:35] LABS: ALBUMIN 4.7 g/dL (3.5-5.0); ALKALINE PHOSPHATASE 67 U/L (38-126); ANION GAP 17.1 MEQ/L (5-15); BLOOD UREA NITROGEN 11 mg/dL (7-17); CHLORIDE 102 mmol/L (98-107); Calcium 9.1 mg/dL (8.4-10.2); Carbon Dioxide 25 mmol/L (22-30); Creatinine 1 0.72 mg/dL (0.52-1.04); EST GLOMERULAR FILTRATION RATE > 60.0 ML/MIN; Glucose 100 mg/dL (74-106); SGOT/AST 39 U/L (14-36); SGPT/ALT 30 U/L (0-35); SODIUM 140 mmol/L (137-145); Total Protein 8.4 g/dL (6.3-8.2)
--- NOTE | 2023-03-23 11:52 | XRAY ---
Indication: Chest pain. Comparison: None Portable chest demonstrates normal heart, lungs, and bony thorax.
[2023-03-23 12:21] VITALS: O2SAT 100
[2023-03-23 12:38] VITALS: BP 130/89; PULSE 69
== END 2023-03-23 12:40 | disposition home or self-care (01) ==
LOC: ED 10:59
DX: R07.9 Chest pain, unspecified (principal); Z79.899 Other long term (current) drug therapy
CPT/HCPCS: 36000; 36415; 71045; 80053; 84436; 84443; 84484; 85025; 85379; 93005; 93041; 94760; 99284; A9270-GY

== ENCOUNTER 2023-10-12 15:59 | Emergency (ER) | payer BC ==
[2023-10-12 16:11] VITALS: PULSE 81; TEMP 98.8
[2023-10-12] MEDS ORDERED: solu-MEDROL 125 MG, Sterile H2O 10 ml 2 ML IV ONE ×2 (16:13)
[2023-10-12] MEDS ORDERED: Pepcid 20 MG VIAL IV ONE ×2 (16:14→16:25)
[2023-10-12] MEDS ORDERED: BENADRYL 50 MG/ML IV ONE (16:14)
[2023-10-12] MEDS ORDERED: Sterile H2O 10 ml IJ ONE (16:25)
[2023-10-12] MEDS ORDERED: BENADRYL 50 MG/ML ONE (16:25)
[2023-10-12] MEDS ORDERED: solu-MEDROL ONE (16:25)
--- NOTE | 2023-10-12 18:11 | ERPHSYRPT ---
- History of Present Illness Time Seen by Provider: 10/12/23 16:10 Source: patient Exam Limitations: no limitations Patient Subjective Stated Complaint: Pt c/o of an allergic reaction with her neck having a red rash and feels like her tongue is numb and has a cough Triage Nursing Assessment: Pt brought self to the ER, vitals wnl, denies pain, pt reports starting a new refill of Synthroid yesterday and that is the only thing new that she can recall, no history of allergic reactions, pulses normal, skin n/w/d, rash is mainly on her neck, denies lip swelling, tongue is numb, doesn't appear to be having difficulty breathing Physician History: 28-year-old female presents to our ED for evaluation of suspected allergic reaction. Patient states she just started Synthroid. After taking her Synthroid pill patient developed a rash around her neck a cough and numbness to her tongue. No difficulty breathing. No hives. No pruritus. Symptoms started prior to arrival. Patient denies a history of allergic reaction. She is otherwise healthy. Patient voices no other complaints or concerns at this time. Portions of this note were created with voice recognition technology. There may be grammatical, spelling, punctuation or sound alike errors Timing/Duration: today Severity: moderate Modifying Factors: Improves With: nothing Associated Symptoms: denies symptoms Allergies/Adverse Reactions: No Known Drug Allergies Allergy (Verified 10/12/23 16:11) Home Medications: Levothyroxine Sodium 75 Mcg [Synthroid 75 Mcg] 75 mcg PO DAILY 04/25/20 [History] Hx Tetanus, Diphtheria Vaccination/Date Given: Yes Hx Influenza Vaccination/Date Given: Yes Hx Pneumococcal Vaccination/Date Given: No Travel Risk - International Travel Have you traveled outside of the country in past 3 weeks: No - Coronavirus Screening Are you exhibiting any of the following symptoms?: No Close contact with a COVID-19 positive Pt in past 14-21 Days: No - Vaccine Status Have you recieved a Covid-19 vaccination: Yes [employer]: [employer] - Vaccination Dates Date of 2cond Vaccination (if applicable): 2020 - Review of Systems Constitutional: No Symptoms, No Fever, No Chills Eyes: No Symptoms Ears, Nose, & Throat: No Symptoms Respiratory: No Symptoms, No Cough, No Dyspnea Cardiac: No Symptoms, No Chest Pain, No Edema, No Syncope Abdominal/Gastrointestinal: No Symptoms, No Abdominal Pain, No Nausea, No Vomiting, No Diarrhea Genitourinary Symptoms: No Symptoms, No Dysuria Musculoskeletal: No Symptoms, No Back Pain, No Neck Pain Skin: No Symptoms, No Rash Neurological: No Symptoms, No Dizziness, No Focal Weakness, No Sensory Changes Psychological: No Symptoms Endocrine: No Symptoms Hematologic/Lymphatic: No Symptoms Immunological/Allergic: No Symptoms All Other Systems: Reviewed and Negative - Past Medical History Pertinent Past Medical History: Yes Neurological History: No Pertinent History ENT History: No Pertinent History Cardiac History: No Pertinent History Respiratory History: No Pertinent History Endocrine Medical History: Hypothyroidism Musculoskeletal History: Other GI Medical History: No Pertinent History History: No Pertinent History Psycho-Social History: No Pertinent History Female Reproductive Disorders: No Pertinent History Other Medical History: RIGHT KNEE ARTHROSCOPY IN HIGH SCHOOL - Past Surgical History Past Surgical History: Yes Neuro Surgical History: No Pertinent History Cardiac: No Pertinent History Respiratory: No Pertinent History Gastrointestinal: No Pertinent History Genitourinary: No Pertinent History Musculoskeletal: Orthopedic Surgery Female Surgical History: No Pertinent History Other Surgical History: right knee scope - Social History Smoking Status: Never smoker Exposure to second hand smoke: No Drug Use: none Patient Lives Alone: No - Female History Hx Last Menstrual Period: 3 weeks ago Hx Now: No - Nursing Vital Signs Nursing Vital Signs: Initial Vital Signs Temperature 98.8 F 10/12/23 16:02 Pulse Rate 81 10/12/23 16:02 Blood Pressure 128/94 10/12/23 16:02 O2 Sat by Pulse Oximetry 99 10/12/23 16:02 Pain Scale Pain Intensity 0 - Physical Exam General Appearance: no apparent distress, alert Eye Exam: PERRL/EOMI, eyes nml inspection Ears, Nose, Throat Exam: normal ENT inspection, TMs normal, pharynx normal, moist mucous membranes Neck Exam: normal inspection, non-tender, supple, full range of motion Respiratory Exam: normal breath sounds, lungs clear, airway intact, No respiratory distress Cardiovascular Exam: regular rate/rhythm, normal heart sounds, normal peripheral pulses Gastrointestinal/Abdomen Exam: soft, normal bowel sounds, No tenderness, No mass Back Exam: normal inspection, normal range of motion, No CVA tenderness, No vertebral tenderness Extremity Exam: normal inspection, normal range of motion, pelvis stable Neurologic Exam: alert, oriented x 3, cooperative, normal mood/affect, sensation nml, No motor deficits Skin Exam: normal color, warm, dry, No rash Lymphatic Exam: No adenopathy SpO2 Interpretation: normal SpO2: 99 O2 Delivery: Room Air - Course Nursing assessment & vital signs reviewed: Yes Ordered Tests: Medication Summary Discontinued Medications Generic Name Dose Route Start Last Admin Trade Name Ilya PRN Reason Stop Dose Admin Methylprednisolone Sodium 0 mg 10/12/23 16:13 10/12/23 16:26 Succinate 125 mg/ Sterile IV 10/12/23 16:14 125 mg Water 2 ml STAT ONE Administration Diphenhydramine HCl 25 mg 10/12/23 16:14 10/12/23 16:26 Diphenhydramine Hcl 50 Mg/Ml Vial IV 10/12/23 16:15 25 mg STAT ONE Administration Diphenhydramine HCl Confirm 10/12/23 16:25 Diphenhydramine Hcl 50 Mg/Ml Vial Administered 10/12/23 16:26 Dose 50 mg .ROUTE .STK-MED ONE Famotidine 20 mg 10/12/23 16:14 10/12/23 16:27 Famotidine 20 Mg/1 Vial IV 10/12/23 16:15 20 mg STAT ONE Administration Famotidine Confirm 10/12/23 16:25 Famotidine 20 Mg/1 Vial Administered 10/12/23 16:26 Dose 20 mg IV .STK-MED ONE Methylprednisolone Sodium Succinate Confirm 10/12/23 16:25 Methylprednis Sod Succ 125 Mg/2 Ml Vial Administered 10/12/23 16:26 Dose 125 mg .ROUTE .STK-MED ONE Sterile Water Confirm 10/12/23 16:25 Water For Injection,Sterile 10 Ml Vial Administered 10/12/23 16:26 Dose 10 ml IJ .STK-MED ONE - Progress Progress: improved Progress Note: Patient is a 28-year-old female presents emergency department for evaluation of an allergic reaction. Patient developed tongue numbness and redness to her neck. Patient believes it may have been levothyroxine. Physical exam was essentially nonremarkable. Patient was in no distress. Patient received Solu- Medrol famotidine Benadryl. Patient reassessed. Symptoms resolved. Patient states she is ready for discharge. Mother at bedside. They voiced no other complaints or concerns at this time. 10/12/23 18:23 Portions of this note were created with voice recognition technology. There may be grammatical, spelling, punctuation or sound alike errors Complexity of problems addressed is moderate acute complicated No critical care time Complexity of data reviewed and analyzed is none. Diagnosis made based on history and physical examination. No specialized testing ordered. Risk of complication and or risk of morbidity/mortality of patient management is moderate. Patient received a prescription for prednisone and EpiPen Vital stable. Time spent to discharge patient is approximately 15 minutes. Plan of care established for shared decision making. No social determinants of health present impede follow-up. Portions of this note were created with voice recognition technology. There may be grammatical, spelling, punctuation or sound alike error 10/12/23 18:24 Counseled pt/family regarding: diagnosis, need for follow-up - Departure Departure Disposition: Home Clinical Impression: Allergic reaction Condition: Stable Critical Care Time: No Referrals: NIC BEATTY, NEUROCRITICAL CARE PHYSICIAN [Primary Care Provider] - Follow up/PCP as directed Additional Instructions: Discharge/Care Plan DELFIN CAN was seen on 10/12/23 in the Emergency Room. The patient was counseled regarding Diagnosis,Lab results, Imaging studies, need for follow up and when to return to the Emergency Room. Prescriptions given: Discharge Note I have spoken with the patient and/or caregivers. I have explained the patient's condition, diagnosis and treatment plan based on the information available to me at this time. I have answered the patient's and/or caregiver's questions and addressed any concerns. The patient and/or caregivers have as good understanding of the patient's diagnosis, condition and treatment plan as can be expected at this point. The vital signs have been stable. The patient's condition is stable and appropriate for discharge from the emergency department. The patient will pursue further outpatient evaluation with the primary care physician or other designated or consulting physician as outlined in the discharge instructions. The patient and/or caregivers are agreeable to this plan of care and follow-up instructions have been explained in detail. The patient and/or caregivers have received these instruction. The patient/and or caregivers are aware that any significant change in condition or worsening of symptoms should prompt an immediate return to this or the closest emergency department or call 911. Prescriptions: Prednisone 10 mg [Deltasone 10 mg] 40 mg PO DAILY 3 Days #12 tablet EPINEPHrine [Epipen 2-Scottie] 0.3 mg IJ DAILY 1 Days #1 unit
[2023-10-12 18:32] VITALS: BP 125/85; O2SAT 93
== END 2023-10-12 18:58 | disposition home or self-care (01) ==
LOC: ED 15:59
DX: T78.40XA Allergy, unspecified, initial encounter (principal); R21 Rash and other nonspecific skin eruption; R05.1 Acute cough; Z79.52 Long term (current) use of systemic steroids; Z79.899 Other long term (current) drug therapy
CPT/HCPCS: 96374; 96375; 99283; J1200; J2930